=== PATIENT | female | born 1975 | race Asian ===

== ENCOUNTER 2020-07-23 07:40 | Outpatient (CLI) | payer BC, OTHER | END 2020-07-23 23:59 | disposition home or self-care (01) | LOC: XRAY 07:40 | PROVIDERS: ATTEND Family Medicine | DX: M25.511 Pain in right shoulder (principal); M25.551 Pain in right hip | CPT/HCPCS: 73030; 73502 ==

== ENCOUNTER 2020-08-20 12:31 | Outpatient (CLI) | payer BC, OTHER ==
[2020-08-20 12:58] LABS: HEMATOCRIT 41.8 % (31.2-41.9); MEAN CORPUSCULAR HEMOGLOBIN 30.8 uug (24.7-32.8); MEAN CORPUSCULAR VOLUME 92.1 fL (75.5-95.3); PLATELET COUNT (AUTO) 293 K/uL (179-408)
== END 2020-08-20 23:59 | disposition home or self-care (01) ==
LOC: LAB 12:31
PROVIDERS: ATTEND Family Medicine
DX: R71.8 Other abnormality of red blood cells (principal)
CPT/HCPCS: 36415; 85025

== ENCOUNTER → 2020-11-24 | Day surgery (SDC) | payer BC, OTHER | END | disposition left against medical advice (07) | LOC: DS 09:51 | PROVIDERS: ATTEND Internal Medicine Gastroenterology | DX: Z53.21 Procedure and treatment not carried out due to patient leaving prior to being seen by health care provider (principal) ==

== ENCOUNTER 2021-04-13 14:42 | Outpatient (CLI) | payer BC, OTHER | END 2021-04-13 23:59 | disposition home or self-care (01) | LOC: LAB 14:42 | PROVIDERS: ATTEND Family Medicine | DX: R05.9 Cough, unspecified (principal); Z20.822 Contact with and (suspected) exposure to COVID-19 | CPT/HCPCS: U0003 ==